=== PATIENT | female | born 1995 | race Caucasian/White ===

== ENCOUNTER 2018-03-26 21:10 | Emergency (ER) | payer SELFPAY ==
[2018-03-27] MEDS: IBUPROFEN 600 MG TAB PO (00:10)
== END 2018-03-27 01:24 | disposition home or self-care (01) ==
LOC: FTE 21:10
DX: S43.402A Unspecified sprain of left shoulder joint, initial encounter (principal); E03.9 Hypothyroidism, unspecified; F17.210 Nicotine dependence, cigarettes, uncomplicated; V49.40XA Driver injured in collision with unspecified motor vehicles in traffic accident, initial encounter
CPT/HCPCS: 72040; 72100; 73030; 81025; 99284-25